=== PATIENT | female | born 1940 | race Two or more races ===

== ENCOUNTER 2019-06-06 18:35 | Emergency (ER) | payer MEDICARE, OTHER ==
[~2019-06-06] VITALS: Ht 157.5 cm; Wt 50.0 kg
[2019-06-06] MEDS ORDERED: LIDOCAINE HCL 1% 20ML VIAL (Pyxis) INJ INFIL ONE (21:00)
[2019-06-06] MEDS: TRAMADOL 50MG TABLET PO ONE (21:55)
[2019-06-06] MEDS: KETOROLAC 60MG/2ML VIAL IM ONE (23:49)
[2019-06-07 04:00] VITALS: BP 160/57
== END 2019-06-07 04:25 | disposition home or self-care (01) ==
LOC: ER 18:35
DX: S01.01XA Laceration without foreign body of scalp, initial encounter (principal); S40.012A Contusion of left shoulder, initial encounter; W18.39XA Other fall on same level, initial encounter; Y93.89 Activity, other specified; Y92.89 Other specified places as the place of occurrence of the external cause; Y99.8 Other external cause status; E11.9 Type 2 diabetes mellitus without complications; E78.00 Pure hypercholesterolemia, unspecified; I10 Essential (primary) hypertension
CPT/HCPCS: 12002; 70450; 72070; 73010; 96372; 99284; J1885; J3490